=== PATIENT | male | born 1970 | race Two or more races ===

== ENCOUNTER 2023-04-05 10:28 | Emergency (ER) | payer SELFPAY ==
[~2023-04-05] VITALS: Ht 172.7 cm; Wt 81.6 kg
[2023-04-05 10:34] VITALS: BP 151/98; TEMP 98.3
[2023-04-05 11:22] VITALS: O2SAT 98
== END 2023-04-05 11:23 | disposition home or self-care (01) ==
LOC: ER 10:34
DX: S49.81XA Other specified injuries of right shoulder and upper arm, initial encounter (principal); M79.644 Pain in right finger(s); E11.9 Type 2 diabetes mellitus without complications; W11.XXXA Fall on and from ladder, initial encounter; Y93.89 Activity, other specified; Y92.89 Other specified places as the place of occurrence of the external cause; Y99.8 Other external cause status
CPT/HCPCS: 73080-TC; 73110; 73140-TC